=== PATIENT | male | born 1950 | race Caucasian/White ===

== ENCOUNTER 2016-12-08 03:33 | Emergency (ER) | payer BC ==
[2016-12-08 03:39] VITALS: TEMP 97.5
[2016-12-08] MEDS ORDERED: KETOROLAC 30 MG/1 ML SDV IVP ONE (04:04)
[2016-12-08] MEDS ORDERED: NS 1,000 ML IV ONE (04:04)
[2016-12-08] MEDS ORDERED: METOCLOPRAMIDE 10 MG/2 ML VIAL IVP ONE (04:05)
[2016-12-08] MEDS ORDERED: NS 50 ML BAG IV ONE (04:08)
--- NOTE | 2016-12-08 04:13 | EDPHY ---
H & P Stated Complaint: pt c/o R sided garland - more severe than any garland I've ever had Time Seen by Provider: 12/08/16 03:49 HPI/ROS: HPI The patient presents with headache which began at about 1:00 a.m. and awoke him from sleep, it is a constant pain which he feels in the right side of his head which is aching in nature and not improved with Tylenol 1 g which he took just prior to arrival. He also notices that his right eye appears red. He denies any vision changes or photophobia. He has not had any fever. He was diagnosed with the flu 3 weeks ago and since then has had some symptoms of sinusitis including rhinorrhea and mild sinus pain. He has an on going cough. He has not had a headache like this before. REVIEW OF SYSTEMS Constitutional: No fever, no chills. Eyes: No discharge. ENT: No sore throat. Cardiovascular: No chest pain, no palpitations. Respiratory: Positive for cough, no shortness of breath. Gastrointestinal: No abdominal pain, no vomiting. Genitourinary: No hematuria. Musculoskeletal: No back pain. Skin: No rashes. Neurological: Positive for headache. PMHx: Recent diagnosis of flu, GERD, hypertension Soc Hx: Lives at home PHYSICAL General Appearance: Alert, no distress Eyes: Pupils equal and round, right eye conjunctiva is slightly injected ENT, Mouth: Mucous membranes moist, TMs normal bilaterally, no frontal or maxillary sinus tenderness Respiratory: There are no retractions, lungs are clear to auscultation Cardiovascular: Regular rate and rhythm Gastrointestinal: Abdomen is soft and non-tender, no masses, bowel sounds normal Neurological: A&O, cranial nerves 2-12 intact, 5/5 strength in upper and lower extremities which is symmetric Skin: Warm and dry, no rashes Musculoskeletal: Neck is supple non tender Extremities: symmetrical, full range of motion Psychiatric: Patient is oriented X 3, there is no agitation Source: Patient Exam Limitations: No limitations - Medical/Surgical History Hx Asthma: No Hx Chronic Respiratory Disease: No Hx Diabetes: No Hx Cardiac Disease: Yes Hx Renal Disease: No Hx Cirrhosis: No Hx Alcoholism: No Hx HIV/AIDS: No Hx Splenectomy or Spleen Trauma: No Other PMH: hypertension, gerd, vasectomy/reversal - Social History Smoking Status: Former smoker Constitutional: Initial Vital Signs Temperature (C) 36.4 C 12/08/16 03:36 Heart Rate 72 12/08/16 03:36 Respiratory Rate 16 12/08/16 03:36 Blood Pressure 157/98 H 12/08/16 03:36 O2 Sat (%) 95 12/08/16 03:36 O2 Delivery Mode Room Air O2 (L/minute) 4 Allergies/Adverse Reactions: lactose Allergy (Verified 12/08/16 03:39) wheat Allergy (Verified 12/08/16 03:39) Home Medications: Medication Instructions Recorded Diovan Hct 320-12.5 mg Tab 12/08/16 Nexium 12/08/16 Medical Decision Making - Diagnostics Imaging: CT head is unremarkable for any intracranial hemorrhage, no acute sinusitis seen , discussed with Dr. Pond of Radiology. Differential Diagnosis: This is a 66-year-old man with new onset headache starting about 3 hours ago, waking him from sleep, it is right-sided, constant, moderate in severity, not improved with Tylenol at home. He has had some symptoms of sinusitis over the last few weeks. Differential diagnosis includes sinusitis, intracranial hemorrhage, subarachnoid hemorrhage, less likely meningitis given no nuchal rigidity, fever , photophobia. In the emergency room, patient was given IV fluids and treatments for his headache with some resolution of his symptoms. CT scan was performed and was unremarkable. Given onset of symptoms 3 hours ago, feel that CT scan is adequate to rule out any subarachnoid hemorrhage. The patient will be discharged, he has follow-up tomorrow with his regular doctor. He is advised to return to the emergency room if he is worse in any way. - Data Points Medications Given: Discontinued Medications Dexamethasone (Decadron Injection) 10 mg IVP EDNOW ONE Stop: 12/08/16 04:52 Last Admin: 12/08/16 04:57 Dose: 10 mg Diphenhydramine HCl (Benadryl Injection) 25 mg IVP EDNOW ONE Stop: 12/08/16 04:29 Last Admin: 12/08/16 04:36 Dose: 25 mg Sodium Chloride (Ns) 1,000 mls @ 0 mls/hr IV ONCE ONE PRN Reason: Wide Open Stop: 12/08/16 04:05 Last Admin: 12/08/16 04:17 Dose: 1,000 mls Ketorolac Tromethamine (Toradol) 30 mg IVP EDNOW ONE Stop: 12/08/16 04:05 Last Admin: 12/08/16 04:17 Dose: 30 mg Metoclopramide HCl (Reglan Injection) 10 mg IVP EDNOW ONE Stop: 12/08/16 04:06 Last Admin: 12/08/16 04:18 Dose: 10 mg Departure - Departure Disposition: Home, Routine, Self-Care Clinical Impression: Headache Qualifiers: Headache type: unspecified Headache chronicity pattern: acute headache Intractability: not intractable Qualified Code(s): R51 - Headache Condition: Good Instructions: General Headache (ED) Additional Instructions: Please return to the emergency room if your worse in any way. Otherwise, follow up with your regular doctor tomorrow. You can take ibuprofen 400 mg and Tylenol 1 g every 6 hours as needed for pain. Referrals: Toya Gonzalez MD [Primary Care Provider] - As per Instructions
[2016-12-08] MEDS ORDERED: DEXAMETHASONE 10 MG/ML VIAL IVP ONE (04:51)
[2016-12-08] MEDS ORDERED: DEXAMETHASONE 10 MG/ML VIAL ONE (04:51)
[2016-12-08 05:08] VITALS: RESP 14
[2016-12-08] MEDS ORDERED: MAGNESIUM SULF 1 GM/DEXTROSE 100 ML IV ONE (05:53)
[2016-12-08 06:22] VITALS: BP 174/85; PULSE 63; O2SAT 96
== END 2016-12-08 06:20 | disposition home or self-care (01) ==
DX: R51 Headache (principal); I10 Essential (primary) hypertension; Z87.891 Personal history of nicotine dependence
CPT/HCPCS: 96374; J1200; J1885; J2765; J3475

== ENCOUNTER → 2019-01-19 | Outpatient (CLI) | payer OTHER, BC | LOC: FIMAGING 14:13 → EDSTATUS 14:13 | PROVIDERS: ATTEND Registered Nurse | DX: M79.651 Pain in right thigh (principal) ==